=== PATIENT | male | born 1955 | race Caucasian/White ===

== ENCOUNTER 2023-10-11 22:05 | Inpatient (IN) | payer OTHER ==
[2023-10-11] MEDS ORDERED: PROPOFOL 1,000,000 MCG/100 ML VIAL IVPB SCH ×2 (22:30→23:45)
[2023-10-11 23:05] LABS: ARTERIAL BLD GAS O2 SATURATION 98.1 % (95-98); ARTERIAL BLOOD GAS BASE EXCESS 0.8 mmol/L (-2-2); ARTERIAL BLOOD GAS PO2 107.9 mmHg (80-100); ARTERIAL BLOOD GAS pH 7.447 (7.350-7.450)
[2023-10-11 23:06] LABS: HEMATOCRIT 29.1 % (35.4-49); HEMOGLOBIN 9.4 GM/dL (11.7-16.9); MCH 31.8 pg (25.7-33.7); MCHC 32.3 g/dl (32.0-35.9); MEAN CELL VOLUME 98.3 fl (80-96); MEAN PLT VOLUME 9.6 fl (7.5-11.1); PLATELET COUNT 387 10^3/uL (134-434); RBC 2.96 M/mm3 (4.00-5.60); RDW 17.2 % (11.9-15.9); WHITE BLOOD COUNT 17.8 K/mm3 (4.0-10.0)
[2023-10-11 23:13] LABS: INR 1.14 (0.83-1.09); PROTHROMBIN TIME (PATIENT) 13.2 SEC (9.7-13.0)
[2023-10-11 23:26] LABS: POTASSIUM 4.5 mmol/L (3.5-5.1)
[2023-10-11 23:27] LABS: BLOOD UREA NITROGEN 20.1 mg/dL (7-18); CALCIUM 8.7 mg/dL (8.5-10.1)
[2023-10-11 23:30] LABS: CREATININE 1.6 mg/dL (0.55-1.3)
[2023-10-11 23:32] LABS: BILIRUBIN,TOTAL 0.3 mg/dL (0.2-1)
[2023-10-11 23:34] VITALS: TEMP 97.4; BMI 25.5
[2023-10-11 23:35] LABS: LACTIC ACID 2.1 mmol/L (0.4-2.0)
[2023-10-11 23:46] LABS: ANISOCYTOSIS 1+; MACROCYTOSIS 0
[2023-10-11 23:50] VITALS: PULSE 92; RESP 18
[2023-10-11] MEDS ORDERED: DEXTROSE 50%-WATER 25 GM/50 ML DISP.SYRIN IVPUSH ONE (23:55)
[2023-10-12 00:01] LABS: ARTERIAL BLD GAS O2 SATURATION 99.7 % (95-98); ARTERIAL BLOOD GAS BASE EXCESS 1.7 mmol/L (-2-2); ARTERIAL BLOOD GAS PO2 260.6 mmHg (80-100); ARTERIAL BLOOD GAS pH 7.537 (7.350-7.450)
[2023-10-12 01:59] VITALS: BP 168/78
== END 2023-10-12 02:22 | disposition short-term general hospital (02) | DRG 100 ==
LOC: JER 22:05 → JERBED 23:36
PROVIDERS: ADMIT Internal Medicine; ATTEND Internal Medicine
PROC: 5A1935Z Respiratory Ventilation, Less than 24 Consecutive Hours (ICD-10-PCS; principal; 2023-10-11)
PROC: 0BH17EZ Insertion of Endotracheal Airway into Trachea, Via Natural or Artificial Opening (ICD-10-PCS; 2023-10-11)
DX: G40.901 Epilepsy, unspecified, not intractable, with status epilepticus (principal); R57.8 Other shock; Z94.0 Kidney transplant status; N13.30 Unspecified hydronephrosis; E87.20 Acidosis, unspecified; J98.11 Atelectasis; J90 Pleural effusion, not elsewhere classified; E87.3 Alkalosis; N48.30 Priapism, unspecified; I10 Essential (primary) hypertension; F31.9 Bipolar disorder, unspecified; E11.9 Type 2 diabetes mellitus without complications
CPT/HCPCS: 0241U-QW; 36415; 36600; 70450-TC; 71045-TC-FY; 71250-TC; 72125-TC; 72128-TC; 72131-TC; 74176-TC; 80053; 82550; 82803; 83605; 84484; 85025; 85379; 85610; 85730; 86850; 86900; 86901; 93005; 93010; 99291

== ENCOUNTER 2023-10-31 12:46 | Emergency (ER) | payer OTHER ==
[2023-10-31] MEDS ORDERED: SODIUM CHLORIDE 1,000 ML IV SCH (13:00)
[2023-10-31 13:58] LABS: VENOUS BASE EXCESS -2.9 mmol/L (-2-2); VENOUS O2 SATURATION 56.9 % (70-80); VENOUS PCO2 66.6 mmHg (38-52); VENOUS PH 7.209 (7.310-7.410)
[2023-10-31 13:59] LABS: HEMATOCRIT 29.2 % (35.4-49); HEMOGLOBIN 9.8 GM/dL (11.7-16.9); MCHC 33.6 g/dl (32.0-35.9); MEAN CELL VOLUME 104.1 fl (80-96); MEAN PLT VOLUME 11.2 fl (7.5-11.1); PLATELET COUNT 169 10^3/uL (134-434); RBC 2.81 M/mm3 (4.00-5.60); RDW 21.4 % (11.9-15.9); WHITE BLOOD COUNT 10.6 K/mm3 (4.0-10.0)
[2023-10-31 14:00] LABS: INR 0.9 (0.83-1.09); PROTHROMBIN TIME (PATIENT) 10.4 SEC (9.7-13.0)
[2023-10-31 14:04] VITALS: RESP 18; BMI 28.7
[2023-10-31 14:06] LABS: ACTIVATED PTT 19.4 SECONDS (25.2-36.5)
[2023-10-31 14:22] LABS: ANISOCYTOSIS 2+; MACROCYTOSIS 1+
[2023-10-31 14:48] LABS: EPI CELLS 4 /uL (0-25.1); HYALINE CASTS 1 /uL (0-3.1); URINE APPEARANCE CLEAR; URINE BACTERIA 27 /uL (0-1359); URINE BILIRUBIN NEGATIVE (NEGATIVE); URINE COLOR YELLOW; URINE GLUCOSE (UA) NEGATIVE (NEGATIVE); URINE KETONE NEGATIVE (NEGATIVE); URINE LEUK ESTERASE 1+ (NEGATIVE); URINE NITRITE NEGATIVE (NEGATIVE); URINE PROTEIN TRACE (NEGATIVE); URINE RBC 12 /uL (0-23.9); URINE UROBILINOGEN 0.2 mg/dL (0.2-1.0); URINE WBC 51 /uL (0-25.8)
[2023-10-31 14:57] LABS: CHLORIDE 103 mmol/L (98-107); SODIUM 134 mmol/L (136-145)
[2023-10-31 14:59] LABS: ALBUMIN 2.9 g/dl (3.4-5.0); CALCIUM 8.8 mg/dL (8.5-10.1); GLUCOSE,RANDOM 133 mg/dL (74-106)
[2023-10-31 15:00] LABS: BLOOD UREA NITROGEN 14.8 mg/dL (7-18); CO2 27 mmol/L (21-32)
[2023-10-31] MEDS ORDERED: VANCOMYCIN 1,000 MG in DEXTROSE 5%-WATER - 250 ML IVPB ONE (15:00)
[2023-10-31] MEDS ORDERED: PIPERACILLIN/TAZOB 4.5 GM 4.5 GM in DEXTROSE 5%-WATER 100 ML IVPB ONE (15:00)
[2023-10-31 15:02] LABS: CHOLESTEROL 113 mg/dL (50-200); SGOT/AST 48 U/L (15-37); SGPT/ALT 19 U/L (13-61)
[2023-10-31 15:03] LABS: CREATININE 2.1 mg/dL (0.55-1.3)
[2023-10-31 15:04] LABS: BILIRUBIN,TOTAL 0.3 mg/dL (0.2-1); LDL CHOLESTEROL (ONLY SJRH) 30 mg/dL (5-100)
[2023-10-31 15:05] LABS: ALK PHOS 128 U/L (45-117); HDL CHOLESTEROL 75 mg/dL (40-60)
[2023-10-31 15:08] LABS: LACTIC ACID 2.5 mmol/L (0.4-2.0)
[2023-10-31 15:08] LABS: ANION GAP 4 mmol/L (4-13); POTASSIUM 7.2 mmol/L (3.5-5.1)
[2023-10-31] MEDS ORDERED: LACTATED RINGERS SOLUTION 1,000 ML/1,000 ML INFUS.BAG IV SCH ×2 (15:15)
[2023-10-31] MEDS ORDERED: INSULIN REGULAR HUMAN 100 UNITS/ML *VIAL IVPUSH ONE (15:38)
[2023-10-31] MEDS ORDERED: DEXTROSE 50%-WATER 25 GM/50 ML DISP.SYRIN IVPUSH ONE (15:38)
[2023-10-31] MEDS ORDERED: CALCIUM GLUCONATE 10% - 1,000 MG/10 ML VIAL IVPUSH ONE (15:39)
[2023-10-31] MEDS ORDERED: PIPERACILLIN/TAZOB 4.5 GM 4.5 GM/100 ML BAG IVPB ONE (16:46)
[2023-10-31] MEDS ORDERED: VANCOMYCIN 1 GRAM (PRE-DOCKED) 1,000 MG/250 ML BAG IVPB ONE (16:47)
[2023-10-31 17:22] LABS: CHLORIDE 105 mmol/L (98-107); POTASSIUM 4.8 mmol/L (3.5-5.1); SODIUM 136 mmol/L (136-145)
[2023-10-31 17:24] LABS: CALCIUM 8.1 mg/dL (8.5-10.1)
[2023-10-31 17:25] LABS: ALBUMIN 2.6 g/dl (3.4-5.0); ANION GAP 4 mmol/L (4-13); BLOOD UREA NITROGEN 16.3 mg/dL (7-18); CO2 27 mmol/L (21-32)
[2023-10-31 17:28] LABS: CREATININE 1.9 mg/dL (0.55-1.3); SGOT/AST 9 U/L (15-37); SGPT/ALT 13 U/L (13-61)
[2023-10-31 17:29] LABS: BILIRUBIN,TOTAL 0.2 mg/dL (0.2-1); TOT PROT 4.8 g/dl (6.4-8.2)
[2023-10-31 17:31] LABS: ALK PHOS 106 U/L (45-117)
[2023-10-31 17:39] LABS: GLUCOSE,RANDOM 27 mg/dL (74-106)
[2023-10-31] MEDS ORDERED: DEXTROSE 50%-WATER - 25 GM/50 ML VIAL IVPUSH ONE (17:50)
[2023-10-31 17:51] VITALS: BP 105/55; PULSE 58; TEMP 94.4
[2023-10-31] MEDS ORDERED: DEXTROSE 50%-WATER 25 GM/50 ML DISP.SYRIN ONE (18:02)
== END 2023-10-31 19:43 | disposition short-term general hospital (02) ==
LOC: JER 12:46
PROC: 3E03329 Introduction of Other Anti-infective into Peripheral Vein, Percutaneous Approach (ICD-10-PCS; principal; 2023-10-31)
PROC: 3E03329 Introduction of Other Anti-infective into Peripheral Vein, Percutaneous Approach (ICD-10-PCS; 2023-10-31)
PROC: 3E033GC Introduction of Other Therapeutic Substance into Peripheral Vein, Percutaneous Approach (ICD-10-PCS; 2023-10-31)
DX: A41.9 Sepsis, unspecified organism (principal); R65.21 Severe sepsis with septic shock; N17.9 Acute kidney failure, unspecified; G40.909 Epilepsy, unspecified, not intractable, without status epilepticus; E11.649 Type 2 diabetes mellitus with hypoglycemia without coma; R09.02 Hypoxemia; Z94.0 Kidney transplant status; Z20.822 Contact with and (suspected) exposure to COVID-19
CPT/HCPCS: 0241U-QW; 36415; 70450-TC; 71045-TC-FY; 80053; 80061; 80177; 80197; 81003; 82550; 82803; 82962; 83605; 84484; 85025; 85610; 85730; 87040; 87086; 93005; 93010; 96365; 96368; 96375; 99285-25